=== PATIENT | male | born 1985 | race Caucasian/White ===

== ENCOUNTER 2020-11-23 15:22 | Observation (INO) | payer OTHER ==
[~2020-11-23] VITALS: Ht 175.3 cm; Wt 66.7 kg
[2020-11-23 17:49] LABS: HEMOGLOBIN 13.8 gm/dl (14.0-17.5); RED BLOOD COUNT 4.81 M/UL (4.20-5.50); WHITE BLOOD COUNT 8.6 K/UL (4.5-11.0)
[2020-11-23 18:20] LABS: BUN/CREATININE RATIO 10 (0-10)
[2020-11-24] MEDS ORDERED: PROAIR HFA8.5 GM INH (14:16)
[2020-11-24] MEDS ORDERED: KEFLEX750 MG PO (15:06)
[2020-11-25 12:11] LABS: HIV SCREEN 4TH GENERATION WRFX Non Reactive (Non Reactive)
[2020-11-25 15:12] LABS: TREPONEMA PALLIDUM ANTIBODIES Non Reactive (Non Reactive)
[2020-11-26 03:07] LABS: HBSAG SCREEN Negative (Negative); HEP A AB, IGM Negative (Negative); HEP B CORE AB, IGM Negative (Negative); HEP C VIRUS AB >11.0 (0.0-0.9)
== END 2020-11-24 16:15 | disposition home or self-care (01) ==
LOC: ER1 15:22 → CDU 21:03 → PROG CARE 21:03
PROVIDERS: Preventive Medicine Occupational Medicine; ADMIT Internal Medicine
DX: G93.40 Encephalopathy, unspecified (principal); F15.10 Other stimulant abuse, uncomplicated; F12.10 Cannabis abuse, uncomplicated; F13.10 Sedative, hypnotic or anxiolytic abuse, uncomplicated; F17.210 Nicotine dependence, cigarettes, uncomplicated; I48.91 Unspecified atrial fibrillation; Z20.822 Contact with and (suspected) exposure to COVID-19; E87.6 Hypokalemia; J45.998 Other asthma; G89.29 Other chronic pain; R51.9 Headache, unspecified; Z88.2 Allergy status to sulfonamides
CPT/HCPCS: 0240U; 36415; 36600; 70450; 71045; 80053; 80074; 80307; 81001; 82009; 82140; 82550; 82553; 82803; 83605; 83735; 83874; 83880; 84100; 84484; 85025; 85652; 86140; 86780; 87040; 87086; 87389; 93005; 96374; 96375; 99285; G0378; G0480; J0696; J2310; J7030

== ENCOUNTER 2021-03-15 20:00 | Emergency (ER) | payer SELFPAY ==
[~2021-03-15 20:00] MED LIST: KEFLEX750 MG PO; PROAIR HFA8.5 GM INH
[2021-03-15 21:47] LABS: HEMOGLOBIN 15.8 gm/dl (14.0-17.5); RED BLOOD COUNT 5.5 M/UL (4.20-5.50); WHITE BLOOD COUNT 8.3 K/UL (4.5-11.0)
[2021-03-15 22:12] LABS: BUN/CREATININE RATIO 14 (0-10)
== END 2021-03-15 23:34 | disposition home or self-care (01) ==
LOC: ER1 20:00
PROVIDERS: Emergency Medicine
DX: F41.9 Anxiety disorder, unspecified (principal); R07.89 Other chest pain; M54.50 Low back pain, unspecified; J45.909 Unspecified asthma, uncomplicated; I25.2 Old myocardial infarction; Z88.2 Allergy status to sulfonamides; Z86.59 Personal history of other mental and behavioral disorders
CPT/HCPCS: 71045; 72129; 72132; 80053; 80307; 81001; 82550; 82553; 83690; 83874; 84484; 85025; 85652; 86140; 93005; 99285; Q9967

== ENCOUNTER 2021-03-19 00:52 | Emergency (ER) | payer OTHER ==
[2021-03-19 02:24] LABS: HEMOGLOBIN 15.2 gm/dl (14.0-17.5); RED BLOOD COUNT 5.22 M/UL (4.20-5.50)
[2021-03-19 02:47] LABS: BUN/CREATININE RATIO 17 (0-10)
== END 2021-03-19 05:20 | disposition home or self-care (01) ==
LOC: ER1 00:52
PROVIDERS: Family Medicine
DX: R07.89 Other chest pain (principal); I10 Essential (primary) hypertension; Z86.73 Personal history of transient ischemic attack (TIA), and cerebral infarction without residual deficits
CPT/HCPCS: 71045; 80053; 82550; 82553; 83874; 84484; 85025; 93005; 99285